=== PATIENT | female | born 1945 | race Caucasian/White ===

== ENCOUNTER 2017-02-27 16:44 | Day surgery (SDC) | payer MEDICARE, BC ==
[~2017-02-27 16:44] MED LIST: Brimonidine 0.2% Ophth Soln 5 ML Bottle ONE; Cataract Ophth Solution EYERT PRN; Hypromellose 2.5% Ophth Soln 15 ML Bottle EYERT PRN; Lidocaine 1% 2 ML ONE; Lidocaine 3.5% Ophth Gel 1 ML Bottle ONE; Povidone-Iodine 5% Sterile Ophth Soln 30 ML Bottle ONE; Sodium Chloride 0.9% 10 ML Syringe FLUSH PRN
[2017-02-27] MEDS: Proparacaine 0.5% Ophth Soln 15 ML Bottle EYERT PRN ×2 (17:06→19:06)
[2017-02-27] MEDS ORDERED: Lidocaine 1% PF 2 ML SDV INJECT ONE (19:06)
[2017-02-27] MEDS ORDERED: Chondroitin Sulfate/Hyaluronate Sodium Ophth Inj 0.5 ML Syringe IOCULAR ONE (19:07)
[2017-02-27] MEDS ORDERED: Moxifloxacin 0.5% Ophth Soln 3 ML Bottle EYERT ONE (19:08)
[2017-02-27] MEDS ORDERED: Balanced Salt Solution Ophth Irrig 500 ML Bottle IOCULAR ONE (19:09)
[2017-02-27] MEDS ORDERED: Vancomycin 500 MG SDV EYERT ONE (19:09)
[2017-02-27 19:31] VITALS: BP 159/85
--- NOTE | 2017-02-27 19:44 | OR ---
PREOPERATIVE DIAGNOSIS: Senile nuclear cataract, right eye. POSTOPERATIVE DIAGNOSIS: Pseudophakia, right eye. PROCEDURE PERFORMED: Cataract extraction with intraocular lens implantation by phacoemulsification technique, right eye. ANESTHESIA: Topical anesthesia. ESTIMATED BLOOD LOSS: None. COMPLICATIONS: None. INDICATIONS: The patient is a 71-year-old female, who was found to have a senile nuclear cataract, reducing her best corrected visual acuity. After explaining the risks, benefits, and alternatives of cataract surgery, an informed consent was obtained. DESCRIPTION OF PROCEDURE: After identifying the patient in the preoperative area, the patient was brought to the operating room. The patient was prepped and draped in a sterile fashion. A lid speculum was inserted into the eye. The microscope was brought into the field. Lidocaine gel was applied to the external surface of the eye. A paracentesis was made 3 clock hours away from the surgeon's operating hand. The anterior chamber was anesthetized with preservative-free Lidocaine. The anterior chamber was filled with Viscoat. A clear corneal incision was made at the 180-degree meridian with a 2.75mm keratome. A continuous tear circular capsulorrhexis was performed. The nucleus was hydrodissected with balanced salt solution. The nucleus was sculpted and removed from the eye using a divide and conquer technique with the phacoemulsification handpiece. The residual viscoelastic was removed with the I/A handpiece. The anterior chamber and capsular bag were filled with Amvisc. An DANTE lens, model ZCB00 with a power of 23.0 diopters and a serial number of [id number] was injected into the capsular bag. The lens was rotated completely into the capsular bag with a Sinskey hook. The residual viscoelastic was removed with the I/A handpiece. The anterior chamber was filled with balanced salt solution to a physiologic pressure. The corneal wound was closed with stromal hydration and seen to be water tight by Weck-Jenny sponge testing. The patient received a drop of Zymar and Alphagan at the end of the case. There were no complications of this case. The patient will be followed postoperatively by Dr. Cesia Camejo. SKA: 02/27/2017 19:28:42 MODL: 02/27/2017 19:38:48 /[id number]
[2017-02-28] MEDS ORDERED: Hypromellose 2.5% Ophth Soln 15 ML Bottle EYERT PRN (06:00)
== END 2017-02-27 20:05 | disposition home or self-care (01) ==
LOC: VM.SDS 16:44
PROVIDERS: ATTEND Ophthalmology
DX: Z96.1 Presence of intraocular lens (principal); H25.11 Age-related nuclear cataract, right eye; Z88.8 Allergy status to other drugs, medicaments and biological substances; Z87.891 Personal history of nicotine dependence; Z79.82 Long term (current) use of aspirin; Z79.899 Other long term (current) drug therapy
CPT/HCPCS: 00142; 66984; A9270; C1780; J3370

== ENCOUNTER 2021-09-11 09:13 | Day surgery (SDC) | payer MEDICARE, BC ==
[~2021-09-11 09:13] MED LIST changes: -Brimonidine 0.2% Ophth Soln 5 ML Bottle ONE; -Cataract Ophth Solution EYERT PRN; -Hypromellose 2.5% Ophth Soln 15 ML Bottle EYERT PRN; +Lactated Ringers 1,000 ML IV SCH; -Lidocaine 1% 2 ML ONE; -Lidocaine 3.5% Ophth Gel 1 ML Bottle ONE; -Povidone-Iodine 5% Sterile Ophth Soln 30 ML Bottle ONE; -Sodium Chloride 0.9% 10 ML Syringe FLUSH PRN
[2021-09-11] MEDS ORDERED: Propofol 200 MG/20 ML SDV ONE ×2 (10:08→10:38)
[2021-09-11] MEDS ORDERED: fentaNYL 100 MCG/2 ML SDV ONE (10:09)
[2021-09-11] MEDS ORDERED: Ondansetron 4 MG/2 ML SDV ONE (10:10)
[2021-09-11] MEDS ORDERED: Dexamethasone 10 MG/ML SDV ONE (10:10)
[2021-09-11 11:20] VITALS: BP 131/70; PULSE 60
--- NOTE | 2021-09-12 10:39 | OR ---
PREOPERATIVE DIAGNOSIS: History of colon polyps. POSTOPERATIVE DIAGNOSIS: History of colon polyps. PROCEDURE PERFORMED: Colonoscopy with polypectomy. COMPLICATIONS: None. SPECIMENS: Polyps, there was 1 in the cecum, 2 in the right colon, 1 at 80 cm. ESTIMATED BLOOD LOSS: 5 mL. PROCEDURE IN DETAIL: This was done in the endoscopy suite. Sedation was given per Anesthesia. She was placed in left lateral position. First, a rectal exam was done and was normal. Scope was introduced into the rectum, slowly advanced to the rectum, sigmoid, descending, transverse, and ascending colon until the cecum was reached. Upon reaching the cecum, scope was slowly withdrawn, withdrawn looking all mucosal surfaces on the way out. No mucosal abnormalities, lesions, or polyps were noted except for a polyp in the cecum, 2 in the right colon, 1 at 80 cm, all of which were removed by hot loop forceps and sent to pathology. The remainder of the exam was normal. BKD: 09/11/2021 11:10:25 MODL: 09/11/2021 14:57:45 /[id number]
== END 2021-09-11 12:10 | disposition home or self-care (01) ==
LOC: VM.SDS 09:13
PROVIDERS: ATTEND Surgery
DX: Z12.11 Encounter for screening for malignant neoplasm of colon (principal); D12.0 Benign neoplasm of cecum; D12.2 Benign neoplasm of ascending colon; I10 Essential (primary) hypertension; I25.10 Atherosclerotic heart disease of native coronary artery without angina pectoris; E03.9 Hypothyroidism, unspecified; G47.33 Obstructive sleep apnea (adult) (pediatric); E78.00 Pure hypercholesterolemia, unspecified; Z98.890 Other specified postprocedural states; Z87.891 Personal history of nicotine dependence
CPT/HCPCS: 00811; J1100; J2405; J2704; J3010; J7120